=== PATIENT | female | born 1985 ===

== ENCOUNTER → 2025-04-17 | Outpatient (CLI) | payer OTHER ==
[2025-04-17 20:32] LABS: Chlamydia Trachomatis Vaginal NOT DETECTED (NOT DETECT); Neisseria Gonorrhoea Vaginal NOT DETECTED (NOT DETECT)
[2025-04-24 11:02] LABS: HPVG SOURCE Cervical
== END ==
LOC: LAB 17:30 → LAB SHORT 17:30
PROVIDERS: Physician Assistant
DX: Z12.4 Encounter for screening for malignant neoplasm of cervix (principal); Z11.3 Encounter for screening for infections with a predominantly sexual mode of transmission
CPT/HCPCS: 87491; 87591; 87624; 87625; G0145